=== PATIENT | female | born 1990 | race African-American/Black ===

== ENCOUNTER 2017-10-07 19:06 | Emergency (ER) | payer OTHER ==
[~2017-10-07] VITALS: Ht 167.6 cm; Wt 63.5 kg
[2017-10-07 19:33] VITALS: BP 131/58
[2017-10-07] MEDS ORDERED: methylPREDNISolone SOD SUCC PF 125 MG/2 ML VIAL. IM ONE (20:00)
[2017-10-07] MEDS ORDERED: PROAIR HFA8.5 GM INH (20:00)
[2017-10-07] MEDS ORDERED: AZIT250T6 PO (20:00)
[2017-10-07] MEDS ORDERED: GUAI600T47 PO (20:00)
[2017-10-07] MEDS ORDERED: IPRATRPIUM/ALBUTEROL 0.5/2.5MG 3 ML NEBU. NEB ONE (20:00)
[2017-10-07] MEDS ORDERED: PRED20TA PO (20:00)
--- NOTE | 2017-10-07 20:01 | PHYS DOC ---
Past Medical History Past Medical History: Asthma Alcohol Use: None Drug Use: None Adult General Chief Complaint Chief Complaint: Congestion HPI HPI Patient is a 27 year old female with a history of asthma presents the ED complaining of cough 4 days. 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 Associated symptoms include sore throat and congestion. States she has been using her nebulizer at home. Denies fever, headache, vision changes, body aches, nausea/vomiting, abdominal pain, chest pain or shortness of breath. Review of Systems Review of Systems Constitutional: Denies fever or chills [] Eyes: Denies change in visual acuity, redness, or eye pain [] HENT: Complains of congestion and sore throat. Respiratory: Complains of cough. Denies shortness of breath [] Cardiovascular: No additional information not addressed in HPI [] GI: Denies abdominal pain, nausea, vomiting, bloody stools or diarrhea [] : Denies dysuria or hematuria [] Musculoskeletal: Denies back pain or joint pain [] Integument: Denies rash or skin lesions [] Neurologic: Denies headache, focal weakness or sensory changes [] Endocrine: Denies polyuria or polydipsia [] All other systems were reviewed and found to be within normal limits, except as documented in this note. Current Medications Current Medications Current Medications Medications (Trade) Dose Ordered Sig/Priscila Start Time Stop Time Status Last Admin Dose Admin Albuterol/ Ipratropium (Duoneb) 3 ml 1X ONCE 10/07/17 20:00 10/07/17 20:01 DC 10/07/17 19:59 3 ML Methylprednisolone Sodium Succinate (SOLU-Medrol 125MG VIAL) 125 mg 1X ONCE 10/07/17 20:00 10/07/17 20:01 DC 10/07/17 20:02 125 MG Allergies Allergies Allergies Coded Allergies Type Severity Reaction Last Updated Verified No Known Drug Allergies 10/07/17 No Physical Exam Physical Exam Constitutional: Well developed, well nourished, no acute distress, non-toxic appearance. [] HENT: Normocephalic, atraumatic, bilateral external ears normal, MILD PHARYNGEAL ERYTHEMA. oropharynx moist, no oral exudates, nose normal. [] Eyes: PERRLA, EOMI, conjunctiva normal, no discharge. [] Neck: Normal range of motion, no tenderness, supple, no stridor. [] Cardiovascular:Heart rate regular rhythm, no murmur [] Lungs & Thorax: Bilateral breath sounds. MILD WHEEZING BILATERALLY. Abdomen: Bowel sounds normal, soft, no tenderness, no masses, no pulsatile masses. [] Skin: Warm, dry, no erythema, no rash. [] Back: No tenderness, no CVA tenderness. [] Extremities: No tenderness, no cyanosis, no clubbing, ROM intact, no edema. [] Neurologic: Alert and oriented X 3, normal motor function, normal sensory function, no focal deficits noted. [] Psychologic: Affect normal, judgement normal, mood normal. [] Current Patient Data Vital Signs Vital Signs Date Time Temp Pulse Resp B/P (MAP) Pulse Ox O2 Delivery O2 Flow Rate FiO2 10/07/17 20:14 80 100 Room Air 10/07/17 19:33 98.5 18 131/58 (82) 98.5 EKG EKG [] Radiology/Procedures Radiology/Procedures [] Course & Med Decision Making Course & Med Decision Making Pertinent Labs and Imaging studies reviewed. (See chart for details) []Patient improved after breathing treatment. States she is feeling much better. Vital stable, no acute distress. Will treat with azithromycin, prednisone and Mucinex outpatient. Discussed [id number] symptomatic treatment. Discussed follow-up with her PCP this week. Discussed reasons to return to the ED. Patient understands and agrees with plan. Dragon Disclaimer Dragon Disclaimer This electronic medical record was generated, in whole or in part, using a voice recognition dictation system. Departure Departure Impression: Primary Impression: Acute bronchitis Disposition: 01 HOME, SELF-CARE Condition: IMPROVED Referrals: NO PCP (PCP) DUANE BISHOP MD Patient Instructions: Acute Bronchitis Scripts Guaifenesin (MUCINEX) 600 Mg Tablet.er 1 TAB PO BID, #20 TAB Prov: GEORGE GARIBAY 10/07/17 Azithromycin (AZITHROMYCIN TABLET) 250 Mg Tablet 1 PKG PO UD, #6 TAB Prov: GEORGE GARIBAY 10/07/17 Albuterol Sulfate (PROAIR HFA INHALER) 8.5 Gm Hfa.aer.ad 1 PUFF INH PRN Q6HRS Y for SHORTNESS OF BREATH, #1 INHALER 0 Refills Prov: GEORGE GARIBAY 12/11/17 Prednisone (PREDNISONE) 20 Mg Tablet 2 TAB PO DAILY, #10 TAB Prov: GEORGE GARIBAY 10/07/17 GEORGE GARIBAY Oct 07, 2017 20:01
== END 2017-10-07 20:19 | disposition home or self-care (01) ==
LOC: ER 19:06
DX: J20.9 Acute bronchitis, unspecified (principal); J45.909 Unspecified asthma, uncomplicated; Z79.899 Other long term (current) drug therapy
CPT/HCPCS: 94250; 94640; 96372; 99283; J2930; J7620

== ENCOUNTER 2017-11-23 11:14 | Emergency (ER) | payer SELFPAY, OTHER | END 2017-11-23 12:04 | disposition home or self-care (01) | LOC: ER 11:14 | DX: T33.822A Superficial frostbite of left foot, initial encounter (principal); T33.821A Superficial frostbite of right foot, initial encounter; R60.0 Localized edema; J45.909 Unspecified asthma, uncomplicated; X31.XXXA Exposure to excessive natural cold, initial encounter; Y93.89 Activity, other specified; Y92.69 Other specified industrial and construction area as the place of occurrence of the external cause; Y99.8 Other external cause status | CPT/HCPCS: 99283 ==